=== PATIENT | male | born 1965 | race Caucasian/White ===

== ENCOUNTER 2020-11-18 21:00 | Emergency (ER) | payer OTHER, SELFPAY ==
[2020-11-18 21:29] VITALS: BP 150/89; PULSE 74; RESP 18; TEMP 36.5; O2SAT 96
[2020-11-18 23:24] LABS: Basophils Absolute Auto 0.1 K/mm3 (0.0-0.1); Basophils Percent Auto 0.8 % (0.2-1.2); Eosinophils Absolute Auto 0.2 K/mm3 (0-0.3); Eosinophils Percent Auto 3.1 % (0-4.4); Hematocrit 42.7 % (42.0-52.0); Hemoglobin 15.4 g/dL (14.0-18.0); Immature Granulocyte Absolute 0.02 K/mm3 (0.00-0.031); Immature Granulocyte Percent A 0.3 % (0-0.5); Lymphocytes Percent Auto 34.7 % (18.3-44.2); Mean Corpuscular HGB Conc 36.1 g/dl (32-36); Mean Corpuscular Volume 85.9 fl (80-100); Mean Platelet Volume 12.1 fl (7.4-10.4); Monocytes Absolute Auto 0.6 K/mm3 (0.1-0.6); Monocytes Percent Auto 7.9 % (2.6-8.5); Neutrophils Percent Auto 53.2 % (45.5-73.1); Platelet Count Result 158 k/mm3 (150-375); Red Blood Count 4.97 M/mm3 (4.6-6.20); Red Cell Distribution Width 11.9 % (11.5-14.5); White Blood Count 7.5 K/mm3 (4.5-10.0)
[2020-11-18 23:33] LABS: Partial Thromboplastin Time 24.4 SECONDS (22.3-36.8)
[2020-11-18 23:36] LABS: Anion Gap 7 mmol/L (8-16); Blood Urea Nitrogen 24 mg/dL (9-20); Calcium 9.2 mg/dL (8.4-10.2); Carbon Dioxide 27 mmol/L (22-30); Chloride 102 mmol/L (98-107); Estimated CRCL calculation 84 ml/min; Estimated Glomerular Filt Rate > 60; Glucose 116 mg/dL (75-110); Sodium 136 mmol/L (137-145)
--- NOTE | 2020-11-18 23:37 | ED.GENADULT ---
HPI - General Adult General Chief complaint: Extremity Injury, Lower Stated complaint: R Leg bruising,knots on leg Time Seen by Provider: 11/18/20 22:56 History of Present Illness HPI narrative: Patient is a 55-year-old gentleman who presents the emergency department chief complaint of a right calf pain. 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 Patient states that after removing the boots and resting his leg the swelling is subsequently gone down and is no longer swollen. Patient states that he was talking with his about this who was concerned since he had had a recent COVID-19 vaccination. The patient was concerned that he may have a blood clot in that leg. Patient currently has no complaints Related Data Home Medications Medication Instructions Recorded Confirmed No Home Medications 11/18/20 Allergies Allergy/AdvReac Type Severity Reaction Status Date / Time No Known Allergies Allergy Verified 11/18/20 22:47 Review of Systems Review of Systems: Narrative: A 10 system review of systems was completed on the patient and is negative except for what is stated in the HPI. Nursing and ancillary documentation was reviewed. 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 HEAD: Normocephalic, atraumatic. EYES: PERRLA and EOMI. ENT: Nares clear, no rhinorrhea or epistaxis. Mucous membranes moist. NECK: Supple. CHEST: Clear to auscultation. No respiratory distress. HEART: Regular rate and rhythm. No murmur heard. Normal peripheral pulses. ABDOMEN: Soft, nontender, nondistended, normal active bowel sounds. EXTREMITIES: Normal range of motion. No edema. SKIN: Warm, dry, no rash. NEURO: No focal deficits. Alert and oriented x3. PSYCH: Normal mood and affect. Course Vital Signs Vital signs: Vital Signs Temperature 36.5 C 11/18/20 21:29 Pulse Rate 74 11/18/20 21:29 Respiratory Rate 18 11/18/20 21:29 Blood Pressure 150/89 H 11/18/20 21:29 Pulse Oximetry 96 11/18/20 21:29 Temperature 36.5 C 11/18/20 21:29 Pulse Rate 74 11/18/20 21:29 Respiratory Rate 18 11/18/20 21:29 Blood Pressure 150/89 H 11/18/20 21:29 Pulse Oximetry 96 11/18/20 21:29 Medical Decision Making Vital Signs Vital Signs: Vital Signs Temperature 36.5 C 11/18/20 21:29 Pulse Rate 74 11/18/20 21:29 Respiratory Rate 18 11/18/20 21:29 Blood Pressure 150/89 H 11/18/20 21:29 Pulse Oximetry 96 11/18/20 21:29 Temperature 36.5 C 11/18/20 21:29 Pulse Rate 74 11/18/20 21:29 Respiratory Rate 18 11/18/20 21:29 Blood Pressure 150/89 H 11/18/20 21:29 Pulse Oximetry 96 11/18/20 21:29 Lab Data Result diagrams: 11/18/20 23:17 11/18/20 23:17 Labs: Lab Results 11/18/20 11/18/20 11/18/20 Range/Units 23:17 23:17 23:17 WBC 7.5 (4.5-10.0) K/mm3 RBC 4.97 (4.6-6.20) M/mm3 Hgb 15.4 (14.0-18.0) g/dL Hct 42.7 (42.0-52.0) % MCV 85.9 (80-100) fl MCH 31.0 (26-34) pg MCHC 36.1 H (32-36) g/dl RDW 11.9 (11.5-14.5) % Plt Count 158 (150-375) k/mm3 MPV 12.1 H (7.4-10.4) fl Immature Gran % (Auto) 0.3 (0-0.5) % Neut % (Auto) 53.2 (45.5-73.1) % Lymph % (Auto) 34.7 (18.3-44.2) % Bowman % (Auto) 7.9 (2.6-8.5) % Eos % (Auto) 3.1 (0-4.4) % Baso % (Auto) 0.8 (0.2-1.2) % Lymph # (Auto) 2.60 (0.9-3.2) K/mm3 Bowman # (Auto) 0.6 (0.1-0.6) K/mm3 Eos # (Auto) 0.2 (0-0.3) K/mm3 Baso # (Auto) 0.1 (0.0-0.1) K/mm3
[2020-11-18 23:43] LABS: INR 0.8; Prothrombin Time 11.7 Seconds (11.1-14.7)
[2020-11-18 23:45] LABS: D Dimer 0.36 ug/mL (<0.48)
[2020-11-19 00:10] VITALS: BP 141/87; PULSE 71; RESP 18; O2SAT 100
== END 2020-11-19 00:10 | disposition home or self-care (01) ==
PROVIDERS: Emergency Provider Emergency Medicine; PCP Internal Medicine
DX: M79.661 Pain in right lower leg (principal)
CPT/HCPCS: 36415; 80048; 85025; 85380; 85610; 85730; 99283

== ENCOUNTER 2022-08-24 21:31 | Emergency (ER) | payer OTHER, SELFPAY ==
[2022-08-24 21:32] VITALS: BP 173/81; PULSE 77; RESP 15; TEMP 36; O2SAT 97
[2022-08-24] MEDS: TETANUS,DIPHTHERIA,AC PERTUSSIS ADULT (0.5 ML) BOOSTRIX IM (22:33)
--- NOTE | 2022-08-24 23:00 | ED.GENADULT ---
HPI - General Adult General Chief complaint: Burn/Smoke Inhalation Stated complaint: RIGHT HAND BURN Time Seen by Provider: 08/24/22 22:00 History of Present Illness HPI narrative: Patient is a 57-year-old male who presents ER with concern for potential infection to the right hand. Patient was working on a car yesterday and had welded the exhaust pipe when he accidentally touched it with his hand. He developed a blister that has since ruptured. His concerned it is infected so he came in to be seen. He has some redness streaking up towards his elbow. No fevers or chills or sweats. No numbness or tingling. No inability to use the hand. Unknown last tetanus shot. Related Data Allergies Allergy/AdvReac Type Severity Reaction Status Date / Time No Known Allergies Allergy Verified 08/24/22 21:49 Review of Systems Musculoskeletal: Musculoskeletal: Denies arthralgias and Denies joint swelling Integumentary/Breasts: Skin/Breast: Reports erythema and Denies rash Comments: hand blister Neurologic: Reports system reviewed and no additional complaints, except as documented PMFSH Past Medical History Medical History (Updated 08/24/22 @ 23:13 by Khurram Dunn MD) Healthy adult male Surgical History Surgical History (Updated 08/24/22 @ 23:13 by Khurram Dunn MD) No pertinent past surgical history Social History Social History Gender identity (if verbalized by the patient): Male Sexual Orientation (if Verbalized by the Patient): Straight or Heterosexual Exam Narrative: GENERAL: Well-appearing, well-nourished, and in no acute distress. HEAD: Normocephalic, atraumatic. EXTREMITIES: Normal range of motion. No edema. Normal Pulses and Sensation in the Right Hand. SKIN: Warm, dry. There is a burn to the thenar eminence of the right hand that is the size of a nickel that is ruptured and is draining clear fluid. There are some lymphangitic streaking up towards the elbow on the volar aspect of the forearm without tenderness or warmth. May represent an early infection. NEURO: Alert and oriented x3. PSYCH: Normal mood and affect. Course Course Emergency Course: Discussed treatment plan with patient he verbalized understanding. Tetanus shot updated. Will start on outpatient antibiotics for potentially developing an infection. Vital Signs Vital signs: Vital Signs Temperature 96.8 F L 08/24/22 21:32 Pulse Rate 77 08/24/22 21:32 Respiratory Rate 15 08/24/22 21:32 Blood Pressure 173/81 H 08/24/22 21:32 Pulse Oximetry 97 08/24/22 21:32 Temperature 96.8 F L 08/24/22 21:32 Pulse Rate 77 08/24/22 21:32 Respiratory Rate 15 08/24/22 21:32 Blood Pressure 173/81 H 08/24/22 21:32 Pulse Oximetry 97 08/24/22 21:32 Medical Decision Making Vital Signs Vital Signs: Vital Signs Temperature 96.8 F L 08/24/22 21:32 Pulse Rate 77 08/24/22 21:32 Respiratory Rate 15 08/24/22 21:32 Blood Pressure 173/81 H 08/24/22 21:32 Pulse Oximetry 97 08/24/22 21:32 Temperature 96.8 F L 08/24/22 21:32 Pulse Rate 77 08/24/22 21:32 Respiratory Rate 15 08/24/22 21:32 Blood Pressure 173/81 H 08/24/22 21:32 Pulse Oximetry 97 08/24/22 21:32 Discharge Plan Discharge Clinical Impression: Burn of hand Patient Disposition: Home, Self-Care Condition: Stable Instructions: Antibiotic Form, Cellulitis (ED) Additional Instructions: Your tetanus shot was updated. You may be developing a secondary infection of your hand becomes red streaking up your arm. You have been started on an antibiotic to help prevent any further spread of infection. Prescriptions: New cefuroxime axetil 500 mg tablet 500 mg PO BID Qty: 14 0RF Follow-up/Referrals: Alex,MD Boris [Primary Care Provider] - 1 Week
[2022-08-24 23:14] VITALS: BP 161/82; PULSE 72; RESP 16; TEMP 36.1; O2SAT 98
== END 2022-08-24 23:12 | disposition home or self-care (01) ==
PROVIDERS: Emergency Provider Emergency Medicine; PCP Internal Medicine
DX: T23.201A Burn of second degree of right hand, unspecified site, initial encounter (principal); Z23 Encounter for immunization; X16.XXXA Contact with hot heating appliances, radiators and pipes, initial encounter
CPT/HCPCS: 90471; 90715; 99283

== ENCOUNTER 2024-01-22 17:16 | Emergency (ER) | payer OTHER, SELFPAY ==
--- NOTE | 2024-01-22 17:18 | ED.SKABFB ---
HPI - Skin/Abscess/Foreign Bdy General Chief complaint: Skin/Abscess/Foreign Body Stated complaint: rash Time Seen by Provider: 01/22/24 17:18 Source: patient Mode of arrival: ambulatory Limitations: no limitations History of Present Illness HPI narrative: Patient is a 59-year-old male who presents with rash to bilateral lower extremities. Patient states it is very itchy and has spread. Patient lives in the [facility] and was at the [facility] this weekend. Denies any shortness of breath or rash elsewhere on body. Patient has used calamine lotion with no relief along with poison jeyson spray that has helped significantly with itchiness. Related Data Allergies Allergy/AdvReac Type Severity Reaction Status Date / Time No Known Allergies Allergy Verified 08/24/22 21:49 Review of Systems Review of Systems: All systems reviewed & are unremarkable except as noted in HPI and below Constitutional: Constitutional: Denies body ache(s), Denies chills, Denies fatigue, Denies fever(s), Denies headache(s), Denies malaise and Denies weakness Eyes: Eyes: Denies blurry vision, Denies irritation and Denies loss of vision ENT: Denies otalgia, Denies headache(s), Denies nasal discharge, Denies sinus pain and Denies sore throat Cardiovascular: Cardiovascular: Denies chest pain, Denies irregular heart rhythm and Denies dyspnea Respiratory: Respiratory: Denies dyspnea Gastrointestinal: Gastrointestinal: Denies abdominal pain, Denies melena, Denies hematochezia, Denies diarrhea, Denies nausea and Denies vomiting Musculoskeletal: Musculoskeletal: Denies back pain, Denies myalgias and Denies arthralgias Integumentary/Breasts: Skin/Breast: Reports pruritus and Reports rash Neurologic: Denies headache(s), Denies loss of vision and Denies weakness Psychiatric: Psychiatric: Reports no additional psychiatric complaints Endocrine: Endocrine: Denies fatigue PMFSH Past Medical History Medical History Healthy adult male Surgical History Surgical History No pertinent past surgical history Social History Social History Gender identity (if verbalized by the patient): Male Sexual Orientation (if Verbalized by the Patient): Straight or Heterosexual Comments At time of signature, agree with nursing past medical, surgical, social and family history. There is no relevant family history pertinent to the presenting complaint. Exam Const: General: cooperative, healthy appearing, comfortable, no acute distress and well nourished Nutritional Appearance: well nourished Orientation/consciousness: patient oriented x3 Limitations: no limitations HENMT: Head: normal to inspection, normocephalic and atraumatic Ears: hearing grossly normal bilaterally and external ears normal Face/Nose/Sinus: Normal external nose present, normal facial exam and face symmetric Face and sinus: normal facial exam and face symmetric Mouth: Yes lip normal Eyes: General: appearance normal, both eyes and all related structures Alignment and Position: alignment normal and position normal Periorbital: periorbital findings normal Eyelids: eyelids normal Pupils: Equal, round and reactive pupils present EOM: EOMs intact bilaterally Neck: Neck: normal visual inspection, full ROM and supple Chest: Chest palpation & inspection: normal inspection of the chest Resp: Effort & Inspection: normal respiratory effort and able to speak in complete sentences Auscultation: clear to auscultation bilaterally Cardio: Rate: regular rate Rhythm: regular rhythm Heart sounds: S1 normal heart sound present and S2 normal heart sound present GI: Inspection: normal to inspection Skin: General skin exam: normal color Rashes: rashes noted vesicles bilateral lower leg arrangement clustered, borders sharp and irregular, color red and surface e
[2024-01-22 17:28] VITALS: BP 142/66; PULSE 67; RESP 16; TEMP 36.4; O2SAT 98
== END 2024-01-22 17:55 | disposition home or self-care (01) ==
PROVIDERS: Emergency Provider Nurse Practitioner Family; PCP Internal Medicine
DX: L23.7 Allergic contact dermatitis due to plants, except food (principal)
CPT/HCPCS: 99213; G0463

== ENCOUNTER 2024-07-15 14:46 | Outpatient (CLI) | payer OTHER, SELFPAY ==
--- NOTE | ~2024-07-15 | MR_ITS ---
MRI of the right shoulder Technique: Axial proton-density fat-sat images, coronal proton density fat-sat and T2 fat-sat images, and sagittal T1-weighted and T2 fat-sat images were acquired. Clinical History: Pain Findings: There is severe AC joint degenerative change with prominent bony productive change of both sides of the joint. Coracoclavicular, coracoacromial, and coracohumeral ligaments are intact. There is 2.4 x 2.4 cm full-thickness tear involving nearly entire supraspinatus tendon. Infraspinatus tendon is intact with moderate tendinosis. Subscapularis tendon demonstrates probable moderate grade partial thickness articular surface tearing. Tendon of long head of the biceps is probably intact, w ith intra-articular tendinosis. Probable degenerative attenuation of the superior labrum without definite discrete, detached labral t ear. Inferior glenohumeral ligament is intact. There is small glenohumeral joint effusion with fluid passi ng through the rotator cuff defect into the subacromial/subdeltoid bursa. There is mild chondromalaci a the medial humeral head. No muscle atrophy or edema. Impression: 2.4 x 2.4 cm full-thickness tear involving essentially the entire supraspinatus tendon. Moderate grade partial thickness articular surface tearing of the subscapularis tendon. Advanced AC joint degenerative change. Probable degenerative attenuation of the superior labrum. Reviewed, dictated and finalized at [facility]. [employer] Impression: 2.4 x 2.4 cm full-thickness tear involving essentially the entire supraspinatus tendon. Moderate grade partial thickness articular surface tearing of the subscapularis tendon. Advanced AC joint degenerative change. Probable degenerative attenuation of the superior labrum.
== END 2024-07-15 14:47 | disposition home or self-care (01) ==
LOC: GOSHIMG 14:50
PROVIDERS: PCP Internal Medicine; Visit Provider Physician Assistant Surgical
DX: M75.121 Complete rotator cuff tear or rupture of right shoulder, not specified as traumatic (principal); M19.011 Primary osteoarthritis, right shoulder
CPT/HCPCS: 73221

== ENCOUNTER 2025-05-15 08:08 | Outpatient (CLI) | payer OTHER, SELFPAY ==
--- NOTE | 2025-05-15 08:26 | ECG_ITS ---
Test Date: 2025-05-15 08:35:33 Measurements Intervals [place] Rate: 62 P: 30 AR: 165 QRS: 58 QRSD: 86 T: -4 QT: 386 QTc: 392 Interpretive Statements SINUS RHYTHM CONSIDER INFERIOR INFARCT, AGE INDETERMINATE ABNORMAL ECG No previous ECG available for comparison Electronically Signed On 05-15-2025 10:09:57 CDT by Ney Bolanos D.O.
[2025-05-15 09:04] LABS: Alanine Aminotransferase 70 U/L (6-50); Albumin Level 4.5 g/dL (3.5-5.1); Alkaline Phosphatase 91 U/L (38-126); Amylase 193 U/L (30-110); Aspartate Amino Transferase 47 U/L (17-59); Bilirubin,Total 0.7 mg/dL (0.2-1.3); Lipase 940 U/L (23-300); Total Protein 7.6 g/dL (6.3-8.2)
== END 2025-05-15 08:09 | disposition home or self-care (01) ==
LOC: ANHSURGERY 08:18
PROVIDERS: PCP Internal Medicine; Visit Provider Surgery
DX: K82.4 Cholesterolosis of gallbladder (principal); E78.5 Hyperlipidemia, unspecified; Z01.818 Encounter for other preprocedural examination
CPT/HCPCS: 36415; 80076; 82150; 83690; 86850; 86900; 86901; 93005

== ENCOUNTER 2025-05-19 03:53 | Day surgery (SDC) | payer OTHER, SELFPAY ==
--- OUTSIDE RECORDS SUMMARY | 2010-06-01 11:30 | XMS_ITS | Continuity of Care Document ---
Author Organization [facility] [place] [address] [place] [address] Phone Care Team Providers Care Circular Distributor Name Role Phone Cooney OD, James Unavailable Unavailable Procedures Procedure Date Remove Foreign Body From Eye Office/outpatient Visit, Est Eye Exam Established Pt Office/outpatient Visit, Est Eye Exam Established Pt Eye Exam Established Pt Advance Directives Directive Yes / No Effective Date File Name No Information Encounters Encounter Description Practice Location Reason(s) For Visit Diagnoses Date Provider Providers Copied on Encounter [facility], [id number] [place] [address] [address], [place], [place], [id number], [place] tel:[phone] [facility] No Information 6-201 0 Cooney OD James. [address] [facility] , [address], [place], [place], [facility] [place], [place]. tel:[phone] Office/outpat ient Visit, Est [facility], [id number] [place] [address] [address], [place], [place], [id number], [place] tel:[phone] [facility] No Information 0 Krishnasamy Vinicio. [address] [facility] [address], [place], [place], [facility] [place], [place]. tel:[phone] [facility], [address], [place], [place], [id number], [place] tel:[phone] [facility] [place] No Information Dec-0 5-200 9 Cooney OD James. [facility] , [address], [place], [place], [facility] [place], . tel:[phone] Office/outpat ient Visit, Est [facility], [address], [place], [place], [id number], tel:[phone] [facility] No Information Apr-0 2-200 8 Cooney OD James. [address] [facility] , [address], [place], [place], [facility] [place], [place]. tel:[phone] [facility], [address] [place] [address] [address], [place], [place], [id number], tel:[phone] [facility] No Information Mar-2 7-200 8 Montano Albertina. [address] [place] [address] , [address], [place], [facility] [place], [place]. tel:[phone] [facility], [address] [place] [address] [address], [place], [place], [id number], [place] tel:[phone] [facility] No Information Mar-2 5-200 8 Krishnasamy Vinicio. [address] [place] [address] [address], [place], [place], [facility] [place], . tel:[phone] Family History Family Member Type Diagnosis Age At Onset No Information Payers Payer name Insurance type Covered democrat ID Authoriza tion(s) No Information Social History Type Description Quantity Date Captured Comments Sex Male Smoking Status No Information Chief Complaint And Reason For Visit No Information Reason For Referral Reason For Referral No Information History Of Present Illness Encounter Date Complaint History Of Prese nt Illness No Information Functional Status Date Functional Assessmen t No Information Instructions Date Instruction Additional Infor mation No Information Assessments Type Assessment Date No Information Patient Care Teams Name Effective Dates (start - stop) Status Members No Information
[2025-05-13 10:15] VITALS: BMI 29.0
--- NOTE | 2025-05-13 10:16 | PC.NURSE ---
[facility] has started construction of its new state of the art ER which will open Spring 2026. With this, we anticipate parking may be a challenge for some our surgical patients and families. Parking spaces are limited but are available for all Surgical, obstetrics, and ER patients sharing this lot. If you arrive and find you are having a hard time finding a parking space, please note that we understand the challenges, please drive around the hospital and park near Hospital Entrance 1. When you enter this entrance, you can ask a volunteer to direct or take you back to the surgical waiting area to check in. We appreciate everyone?s understanding of these expected challenges while we build for your future. Report to the Outpatient Waiting Room, entrance under the green pavilion located off [address], at time _0730_ on date _[id number]_. Planned Procedure Time: _0930_.? Time changes happen often and if your time is changed the preop area will call you the afternoon before. - You and your visitor will be asked to self-screen and do not enter if you have any COVID symptoms. Please call surgeon if you need to reschedule. - A mask is optional within the hospital at this time. Patients may have clear liquids (water, carbonated beverages, clear teas, apple juice) until 3 hours prior to surgery with a maximum of 20 ounces. - No food from midnight until time of surgery and no smoking, or chewing tobacco (or any form of nicotine). No chewing gum, candy or mints. Take only the following medications with a SIP of water on the morning of surgery: __None___ DO NOT STOP ANY OF YOUR OTHER PRESCRIPTION MEDICATIONS PRIOR TO SURGERY EXCEPT THE FOLLOWING Hold all vitamins and supplements for 3 days per anesthesiologist. Medications to discontinue per physician Date to take last dose Please no make-up, nail moldovan, hairspray, perfume, deodorant, or body powder the day of surgery.? No jewelry (including any body piercings) or valuables the day of surgery, leave them at home.? Please take a shower or bath the night before, or the morning of, surgery with an antibacterial soap.? Wear comfortable, loose fitting clothing.? - Jewelry must be removed prior to entering the operating room.? Rings and piercings that are not removed may be cut off. - The hospital will not accept responsibility for valuables.? - Please leave all valuables, including medications, at home the day of surgery. If you are going home after surgery, a licensed car pick up driver must drive you home.? - NO public transportation without another adult if you receive anesthesia. - We recommend that an adult stay with you for 24 hours following discharge. - We also recommend that you do not drive, make important decision, drink alcoholic beverages, or take any drugs that were not prescribed by your health care provider for at least 24 hours after your discharge time. Follow any additional instructions given to you from your surgeon. Telephone instructions given to __Matt___and asked if any additional questions and then verbalized understanding. Patient advised to call surgeon office or pre surgery nurse liaison [phone] if any additional questions.
[2025-05-19] VITALS (11 sets, daily range): BP systolic 117–148; BP diastolic 57–90; PULSE 58–72; RESP 10–20; TEMP 36.4; O2SAT 96–100
--- OUTSIDE RECORDS SUMMARY | 2025-05-19 03:55 | XMS_ITS | Clinical Summary ---
Author Organization [facility] Address [address] [place] [address] Care Team Providers Care Limousine Driver Name Role Phone Boris Johnson MD Primary Care Provider [phone] Encounters Date Type Department Care Team Description 04/04/2025 7:10 AM CDT - 04/04/2025 11:59 PM CDT Hospital Encounter [facility] [address] [place] [address] Abnormal levels of other serum enzymes Discharge Disposition: Discharge to home or self care from Last 3 Months Surgical History Surgery Date Site/Laterality Comments MANDIBLE SURGERY Jaw Surgery Repair - (Added by Conv) Family History Medical History Relation Name Comments Diabetes Mother Family history of diabetes mellitus - (Added by Conv) Heart disease Mother Family history of cardiac disorder - (Added by Conv) Relation Name Status Comments Mother Social History Tobacco Use Types Packs/Day Years Used Date Smoking Tobacco: Never Sex and Gender Information Value Date Recorded Sex Assigned at Not on file Legal Sex Male 12:56 AM [employer] Gender Identity Not on file Sexual Orientation Not on file Obstetrics History Last Filed Vital Signs Vital Sign Reading Time Taken Comments Blood Pressure - - Pulse - - Temperature - - Respiratory Rate - - Oxygen Saturation - - Inhaled Oxygen Concentration - - Weight 83.9 kg (185 lb 0.2 oz) 08/26/2016 2:24 P M [employer] Height 170.2 cm (5' 7) 08/26/2016 2:24 PM [employer] Body Mass Index 28.98 08/26/2016 2:24 PM [employer]ER Plan of Treatment Health Maintenance Due Date Last Done Comments Colon Cancer Screening-Colonoscopy 1965 Depression Screening 1965 Hepatitis C Screening 1965 Prostate Cancer Screening-PSA 1965 Hepatitis B Screening 01/20/1982 Regular Well Visit/Exam 18-64 01/20/1982 Zoster Vaccine (1 of 2) 01/20/2014 Covid-19 Vaccine (3 - 2024-2 6 season) 2025 11/12/2020, 10/22/2020 Influenza Vaccine (#1) 2025 DTaP/Tdap/Td Vaccine (2 - Td or Tdap) 08/24/2032 08/24/2022 Pneumococcal vaccine <65 Aged Out No longer eligible based on patient's age to complete this topic Procedures Procedure Name Priority Date/Time Associated Diagnosis Comments US LIVER Schedule Routine, Read Routine (OP Routine) 04/04/2025 7:53 AM CDT Abnormal levels of other serum enzymes from Last 3 Months Results * US Liver (04/04/2025 7:53 AM CDT) Anatomical Region Laterality Modality Abdomen N/A Ultrasound 04/12/2025 10:1 3 PM CDT Narrative 04/12/2025 10:15 PM CDT EXAM DESCRIPTION: US LIVER REASON FOR STUDY: Abnormally elevated liver enzymes TECHNIQUE: Grayscale images acquired of the liver and recorded on PACS. Additional selected color Doppler and spectral images recorded. Selected velocities recorded. COMPARISON: None FINDINGS: LIVER: The liver demonstrates an increase in echotexture with attenuation of the ultrasound beam characteristic of fatty infiltration. No cystic or solid mass lesions were seen within the liver. The liver measures 18.8 cm in greatest diameter. LIVER VASCULATURE: The main portal vein is patent with antegrade flow. GALLBLADDER: The gallbladder appears unremarkable. No cholelithiasis. No gallbladder wall thickening or pericholecystic fluid. No positive sonographic Wellington sign reported. There are multiple gallbladder polyps, with the largest measuring 6 mm. BILIARY: No ductal dilatation. Common duct measures 3 mm . ASCITES: None. OTHER: The right kidney measures 12.1 cm in longitudinal dimensions. No evidence of hydronephrosis or nephrolithiasis. Visualized portions of the pancreas are normal. IMPRESSION: 1. Fatty infiltration of the liver. 2. Multiple gallbladder polyps, with the largest measuring 6 mm. THIS IS AN ELECTRONICALLY VERIFIED FINAL REPORT 04/12/2025 10:15 PM - Electronically signed by Edwin Wilson M.D. KT: KRYSTLE Report ID: [id number] Reading Location: [id number] Procedure Note Edwin Wilson MD - 04/12/2025 EXAM DESCRIPTION: US LIVER REASON FOR STUDY: Abnormally elevated liver enzymes TECHNIQUE: Grayscale images acquired of the liver and recorded on PACS. Additional selected color Doppler and spectral images recorded. Selected velocities recorded. COMPARISON: None FINDINGS: LIVER: The liver demonstrates an increase in echotexture withattenuation of the ultrasound beam characteristic of fatty infiltration. No cystic orsolid mass lesions were seen within the liver. The liver measures 18.8 cm in greatest diameter. LIVER VASCULATURE: The main portal vein is patent with antegrade flow. GALLBLADDER: The gallbladder appears unremarkable. No cholelithiasis.No gallbladder wall thickening or pericholecystic fluid. No positivesonographic Wellington sign reported. There are multiple gallbladder polyps, with the largest measuring 6 mm. BILIARY: No ductal dilatation. Common duct measures 3 mm . ASCITES: None. OTHER: The right kidney measures 12.1 cm in longitudinal dimensions. No evidence of hydronephrosis or nephrolithiasis. Visualized portions of the pancreas are normal. IMPRESSION: 1. Fatty infiltration of the liver. 2. Multiple gallbladder polyps, with the largest measuring 6 mm. THIS IS AN ELECTRONICALLY VERIFIED FINAL REPORT 04/12/2025 10:15 PM - Electronically signed by Edwin Wilson M.D. KT: KRYSTLE Report ID: [id number] Reading Location: [id number] Boris Johnson MD [facility] PROCED[facility] Final Resu lt from Last 3 Months Insurance [facility] CHOICE PLUS Care Teams Limousine Driver Relationship Specialty Start Date End Date Boris Johnson MD PCP - General Internal Medicine 03/24/25
--- NOTE | 2025-05-19 07:19 | WPDHPUPDATE1 ---
History and Physical Update Update Date/Time: 05/19/25 07:19 History and Physical has been reviewed, including an updated exam of the patient. There are NO changes in the patient's condition. Risks, benefits, and alternatives have been discussed and questions answered. Patient agrees to proceed with procedure. patient is set up for robotic assisted cholecystectomy
[2025-05-19] MEDS: LACTATED RINGERS 1,000 ML 30 ML IV CONT (08:15)
[2025-05-19] MEDS: INDOCYANINE GREEN 25 MG VIAL WITH DILUENT 3.75 MG IV PUSH (08:30)
[2025-05-19] MEDS: ACETAMINOPHEN 500 MG TABLET 1000 MG PO (08:30)
[2025-05-19] MEDS: KETOROLAC 15 MG/ML VIAL (*BKC) IV PUSH (08:30)
[2025-05-19 09:03] LABS: Alanine Aminotransferase 68 U/L (6-50); Albumin Level 4.6 g/dL (3.5-5.1); Alkaline Phosphatase 93 U/L (38-126); Amylase 123 U/L (30-110); Aspartate Amino Transferase 48 U/L (17-59); Bilirubin,Total 0.6 mg/dL (0.2-1.3); Lipase 331 U/L (23-300); Total Protein 7.8 g/dL (6.3-8.2)
--- NOTE | 2025-05-19 09:05 | WPDANESEPPF ---
Anes - Initial Pre Proc Eval Procedure: Operation Date: 05/19/25 09:30 Proposed Procedures p Robotic Laparoscopic Cholecystectomy - Gia Mars MD Date/Time: 05/19/25 09:05 Surgeon: Gia Mars MD Pre Op Diagnosis: gallbladder polyps Patient Data Age: 60 Gender: M Height: 1.7 m Weight: 84 kg Allergies Allergy/AdvReac Type Severity Reaction Status Date / Time No Known Allergies Allergy Verified 05/13/25 10:07 Home Medications ?Medication ?Instructions ?Recorded ?Confirmed ?Type atorvastatin 10 mg tablet (Lipitor) 10 mg PO DAILY 05/13/25 05/13/25 History Laboratory Tests 05/19/25 08:17 Total Bilirubin 0.6 mg/dL (0.2-1.3) Direct Bilirubin 0.0 mg/dL (0-0.3) AST 48 U/L (17-59) ALT 68 H U/L (6-50) Alkaline Phosphatase 93 U/L (38-126) Total Protein 7.8 g/dL (6.3-8.2) Albumin 4.6 g/dL (3.5-5.1) Amylase 123 H U/L (30-110) Lipase 331 H U/L (23-300) Patient hx anesthesia problems: none Family hx anesthesia problems: none Results Review: All pre-operative results and documents have been reviewed as part of the pre-operative evaluation. COUNT INCLUDES THE [facility] Past Medical History Medical History Healthy adult male Surgical History Surgical History No pertinent past surgical history Family History Family History Mother Diabetes mellitus Hypertension Heart disease Cancer Social History Social History Smoking status: Never smoker Alcohol intake: current Substance use: never Living arrangements: with family Gender identity (if verbalized by the patient): Male Sexual Orientation (if Verbalized by the Patient): Straight or Heterosexual Spiritual care concerns: No Anes - Eval Final PreProcedure Day of Procedure 05/19/25 09:05 Patient weight: overweight Heart: regular rate and rhythm Lungs: clear to auscultation Airway: Mallampati scale class II Neurological: alert and oriented Last oral intake: >/= 8 hours ASA classification: II Emergent: no Anesthetic plan: proceed Anesthesia type and monitoring: general ETT and standard monitoring Results Review: All pre-operative results and documents have been reviewed as part of the pre-operative evaluation. Informed Consent: The patient's anesthetic plan and its attendant risks and benefits were discussed with the patient/family/POA. Questions were solicited and answers provided to the satisfaction of the patient/family/POA.
[2025-05-19] MEDS: ceFAZolin 2 GM in SODIUM CHLORIDE 0.9% IV 50 ML 100 ML IVPB (09:21)
[2025-05-19] MEDS: BUPIVACAINE/EPINEPHRINE 0.5% 50 ML VIAL 30 ML INFILTRATE (09:49)
--- NOTE | 2025-05-19 10:04 | S_PTH ---
PATIENT: Justin Alvarado LOC: [facility] U#:[id number] AGE/SX: 60/M ROOM: RE05/19/[address]: Gia Mars MD : 1965 BED: DIS: 05/19/2025 SPEC #: [id number] RECD: 05/19/25 10:44 STATUS: PRISCILLA REQ #: [id number] ROSA: 05/19/25 10:[address]: Gia Mars DEPT: [facility] Surgical RECD BY: Inocencia Banda ENTERED: 05/19/25 10:45 SP TYPE: Surgical OTHR DR: Boris JohnsonMD Tissues: A - Gallbladder Procedures: Hematoxylin and Eosin Stain Gross and Microscopic Level 3
--- NOTE | 2025-05-19 10:18 | W.PM.PROC2 ---
Procedure Note - Detailed Date of Procedure 05/19/25 Pre-op Diagnosis gallbladder polyps Post-op Diagnosis Same Procedure Performed Robotic assisted cholecystectomy Surgeon Gia Mars MD Anesthesia General and Local Indications 60-year-old male presenting to the office after findings of gallbladder polyps on imaging. Findings Moderate distention of the gallbladder Description of Procedure The patient was taken to the operating room and placed in the supine position. After adequate induction of general anesthesia, the patient was prepped and draped in the normal sterile fashion. A time-out was then done to verify the patient's identity, as well as the procedure being performed. I began by making a 8 mm incision in the periumbilical region. A Veress needle was then placed in the peritoneal cavity and CO2 gas was insufflated. After adequate pneumoperitoneum was achieved, the Veress needle was removed and a 8 mm Optiview trocar was placed under direct visualization. Once into the abdominal cavity, the introducer was removed and the laparoscope was placed through this trocar site. Under direct visualization, I placed a further 8 mm port in the left mid abdomen and 2 additional 8 mm ports in the right mid abdomen. The robot was then docked to these ports sites. I then went to the console. The gallbladder was then identified and noted to be moderately distended. I was able to place a grasper at the dome of the gallbladder and this was retracted up and over the liver. A 2nd retractor was used to grasp the infundibulum and retracted laterally. This allowed visualization and dissection of the triangle of Calot. There were some omental adhesions to the gallbladder and these were taken down with the cautery. I then began dissection around the triangle Calot. I first identified the cystic duct, I was able to visualize the entirety of the duct from its proximal insertion into the gallbladder to its distal junction with the common hepatic/common bile duct junction. I then used the firefly visualization at this point to confirm the anatomy. The proximal cystic duct was then further skeletonized, clipped, and transected. Next I visualized the cystic artery. Again the structure was skeletonized, clipped, and transected. I then again used firefly to confirm anatomy and no aberrant anatomy was noted. I then used the Bovie cautery to take down the peritoneal attachments of the gallbladder off the liver bed. Once the gallbladder specimen was completely detached, an Endo pouch was placed through the left 8 mm port site and the gallbladder specimen was placed in the endo-pouch and subsequently removed. Of note, I made a cholecystostomy and decompressed the gallbladder to facilitate removal. I then re-examined the right upper quadrant. Hemostasis was noted in the liver bed and the clips were noted to be in good position on both the duct and the artery. No other pathology was seen in the right upper quadrant. All instruments were then removed and the robot was undocked. The abdomen was then desufflated and all ports were removed. All port sites were then closed with 4-0 Monocryl subcuticular suture. Dermabond was placed on each was wound. The patient tolerated the procedure well and was extubated in the operating room postop. The patient will now be transferred to the recovery room in stable condition. Estimated Blood Loss 5 Drains No Packing No Pathology Yes Complications No immediate complications Condition Stable Disposition PACU [facility] Billing Surgery - Charge Forward: Surgery Billing
== END 2025-05-19 12:38 | disposition home or self-care (01) ==
PROVIDERS: PCP Internal Medicine; Visit Provider Surgery
PROC: 0FT44ZZ Resection of Gallbladder, Percutaneous Endoscopic Approach (ICD-10-PCS; CPT 47562; principal; 2025-05-19 09:30)
DX: K80.10 Calculus of gallbladder with chronic cholecystitis without obstruction (principal); K66.0 Peritoneal adhesions (postprocedural) (postinfection); Z79.52 Long term (current) use of systemic steroids; Z80.9 Family history of malignant neoplasm, unspecified; Z82.49 Family history of ischemic heart disease and other diseases of the circulatory system
CPT/HCPCS: 47562; S2900; 36415; 80076; 82150; 83690; 88304; J0690; A9270; J1100; J1885; J2250; J2270; J2405; J2704; J7030; J7120